=== PATIENT | female | born 1945 | race Caucasian/White ===

== ENCOUNTER → 2018-05-22 | Outpatient (CLI) | payer MEDICARE ==
--- NOTE | 2018-05-23 07:16 | US ---
EXAMINATION TYPE: US carotid duplex BILAT DATE OF EXAM: 05/22/2018 COMPARISON: NONE CLINICAL HISTORY: H53.9 UNSPECIFIED VISUAL DISTURBANCE. Rt side high bifurcation EXAM MEASUREMENTS: RIGHT: Peak Systolic Velocity (PSV) cm/sec ----- Right CCA: 93.0 ----- Right ICA: 104.3 ----- Right ECA: 76.5 ICA/CCA ratio: 1.1 RIGHT: End Diastole cm/sec ----- Right CCA: 33.6 ----- Right ICA: 38.7 ----- Right ECA: 14.7 LEFT: Peak Systolic Velocity (PSV) cm/sec ----- Left CCA: 93.0 ----- Left ICA: 89.0 ----- Left ECA: 58.9 ICA/CCA ratio: 1.0 LEFT: End Diastole cm/sec ----- Left CCA: 32.3 ----- Left ICA: 32.6 ----- Left ECA: 8.3 VERTEBRALS (direction of flow): Right Vertebral: Antegrade Left Vertebral: Antegrade Rhythm: Normal Mild atheromatous plaquing is seen within the carotid bulbs. IMPRESSION: Mild degree of grayscale atheromatous plaquing with no sonographically evident hemodynam ically significant stenosis within either visualized carotid arterial system. Criteria for Assigning % of Stenosis / Diameter reduction (Estimation based on the indirect measurements of the internal carotid artery velocities (ICA PSV). 1. Normal (no stenosis)=ICA PSV < 125 cm/s: ratio < 2.0: ICA EDV<40 cm/s. 2. Less than 50% stenosis=ICA PSV < 125 cm/s: ratio < 2.0: ICA EDV<40 cm/s. 3. 50 to 69% stenosis=ICA PSV of 125 to 230 cm/s: ration 2.0 ? 4.0: ICA EDV 40-100 cm/s. 4. Greater than 70% stenosis to near occlusion= ICA PSV > 230 cm/s: ratio > 4.0: ICA EDV > 100 cm/s. 5. Near occlusion= ICA PSV velocities may be low or undetectable: variable ratio and ICA EDV. 6. Total occlusion=unable to detect flow.
== END ==
LOC: RADUSWWP 15:42
PROVIDERS: ATTEND Internal Medicine
DX: I70.90 Unspecified atherosclerosis (principal)
CPT/HCPCS: 93880

== ENCOUNTER → 2019-09-07 | Outpatient (CLI) | payer MEDICARE ==
--- NOTE | 2019-09-10 08:04 | MM ---
Reason for exam: screening (asymptomatic). Last mammogram was performed 5 years and 5 months ago. History: Patient is postmenopausal. Took estrogen for 38 years 4 months beginning at age 30. Physical Findings: A clinical breast exam by your physician is recommended on an annual basis and results should be correlated with mammographic findings. MG 3D Screening Mammo W/Cad Bilateral CC and MLO view(s) were taken. Prior study comparison: April 11, 2014, bilateral MG screening mammo w CAD. March 03, 2012, [facility] DIGITAL RIGHT MAMMOGRAM w/CAD. The breast tissue is heterogeneously dense. This may lower the sensitivity of mammography. Benign appearing calcifications in the left breast. No suspicious abnormality. No significant changes when compared with prior studies. ASSESSMENT: Benign, BI-RAD 2 RECOMMENDATION: Routine screening mammogram of both breasts in 1 year.
== END | disposition home or self-care (01) ==
LOC: RADMAMWWP 11:57
PROVIDERS: ATTEND Internal Medicine
DX: Z12.31 Encounter for screening mammogram for malignant neoplasm of breast (principal)
CPT/HCPCS: 77063; 77067

== ENCOUNTER 2020-08-15 06:22 | Day surgery (SDC) | payer MEDICARE ==
[2020-08-14 09:39] VITALS: BMI 24.0
[~2020-08-15 06:22] MED LIST: LACTATED RINGERS 1,000 ML IV SCH
[2020-08-15 06:59] VITALS: RESP 16; TEMP 98
[2020-08-15 07:17] LABS: Glucose,Whole Blood 108 mg/dL (75-99)
[2020-08-15] MEDS ORDERED: LIDOCAINE 1% INJ 10MG/ML (20 ML MDV) ONE (07:36)
[2020-08-15] MEDS ORDERED: PROPOFOL 10 MG/ML 20 ML VIAL IV ONE (07:36)
--- NOTE | 2020-08-15 07:46 | P.PCN ---
Date of Procedure: 08/15/20 Procedure(s) Performed: BRIEF HISTORY: Patient is a 75-year-old, pleasant, white female scheduled for an upper endoscopy as a part of evaluation of atypical chest pain for the last 2 weeks' duration.. She went to the ER 2 weeks ago and had cardiac workup done that was negative. She denies any heartburn. Denies any dysphagia or odynophagia. No upper GI symptoms. PROCEDURE PERFORMED: Esophagogastroduodenoscopy with biopsy.. PREOPERATIVE DIAGNOSIS: Atypical chest pain of 2 weeks' duration. IV sedation per anesthesia. PROCEDURE: After informed consent was obtained, the patient was brought into the endoscopy unit. IV sedation was administered by Anesthesia under continuous monitoring. Initially the Olympus GIF-140 video endoscope was inserted into the mouth. Esophagus intubated without any difficulty. It was gradually advanced into the stomach and duodenum and carefully examined. The bulb and the second part of the duodenum appeared normal. The scope at this time was withdrawn to the stomach, adequately insufflated with air, and upon careful examination, mucosa of the antrum had multiple scattered erosions and biopsies were done from this area. The body, cardia and the fundus appeared normal. The scope was then withdrawn into the esophagus. The GE junction was located at 39 cm from the incisors. There was a small sliding type hiatal hernia noted. The esophagus appeared normal. There were no erosions or ulcerations seen, biopsies were done from the distal esophagus and the patient tolerated the procedure well. IMPRESSION: 1. Antral erosive gastritis. 2. Very small sliding type hiatal hernia but no evidence of esophagitis. RECOMMENDATIONS: The findings of this examination were discussed with the patient as well as her family. She was advised to follow with the biopsy results. In the meantime she was given her perception for Prilosec 40 mg daily to be taken half hour before breakfast for 4 weeks. She was advised to follow with office in a month.
[2020-08-15 07:49] VITALS: PULSE 58
[2020-08-15 08:05] VITALS: BP 128/56
== END 2020-08-15 08:29 | disposition home or self-care (01) ==
LOC: ORWHC2ENDO 06:22
PROVIDERS: ATTEND Internal Medicine Gastroenterology
DX: K29.00 Acute gastritis without bleeding (principal); R07.89 Other chest pain; K44.9 Diaphragmatic hernia without obstruction or gangrene; Z79.899 Other long term (current) drug therapy
CPT/HCPCS: 88305; 43239; J2001; J2704

== ENCOUNTER → 2022-10-21 | Outpatient (CLI) | payer MEDICARE ==
--- NOTE | 2022-10-25 10:26 | CA ---
Transthoracic Echo Report Name: Shelly Munoz Age: 77 Gender: F : 1945 Exam Date: 10/21/2022 14:58 Exam Location: [facility] Ht (in): 63 Wt (lb): 139 Ordering Physician: Kayden Long MD Attending/Referring Phys: Vy Barrera PAC District Engineer Jo Ann Hernández RDCS Procedure CPT: Indications: r55 Cardiac Hx: Technical Quality: Fair Contrast 1: Total Dose (mL): Contrast 2: Total Dose (mL): MEASUREMENTS (Male / Female) Normal Values 2D ECHO LV Diastolic Diameter PLAX 3.0 cm 4.2 - 5.9 / 3.9 - 5.3 cm LV Systolic Diameter PLAX 2.1 cm IVS Diastolic Thickness 1.3 cm 0.6 - 1.0 / 0.6 - 0.9 cm LVPW Diastolic Thickness 1.6 cm 0.6 - 1.0 / 0.6 - 0.9 cm LV Relative Wall Thickness 1.0 RV Internal Dim ED PLAX 3.0 cm LA Volume 46.5 cm??? 18 - 58 / 22 - 52 cm??? M-MODE Aortic Root Diameter MM 2.6 cm LA Systolic Diameter MM 3.3 cm LA Ao Ratio MM 1.3 AV Cusp Separation MM 1.7 cm DOPPLER AV Peak Velocity 151.4 cm/s AV Peak Gradient 9.2 mmHg AV Mean Velocity 102.2 cm/s AV Mean Gradient 4.7 mmHg AV Velocity Time Integral 35.4 cm LVOT Peak Velocity 123.4 cm/s LVOT Peak Gradient 6.1 mmHg LVOT Velocity Time Integral 27.5 cm MV Area PHT 3.9 cm??? Mitral E Point Velocity 85.1 cm/s Mitral A Point Velocity 118.6 cm/s Mitral E to A Ratio 0.7 MV Deceleration Time 195.7 ms MV E' Velocity 4.9 cm/s Mitral E to MV E' Ratio 17.3 TR Peak Velocity 250.5 cm/s TR Peak Gradient 25.1 mmHg Right Ventricular Systolic Press 30.0 mmHg FINDINGS Left Ventricle Mildly increased left ventricular wall thickness. Left ventricular cavity size normal. Normal left ventricular systolic function with no obvious regional wall motion abnormalities. Left ventricular ejection fraction is estimated at 55-60 %. Right Ventricle Normal right ventricular size and function. Right ventricular systolic pressure within normal limits. Right Atrium Normal right atrial size. Left Atrium Normal left atrial size. Mitral Valve Structurally normal mitral valve. No mitral stenosis, regurgitation or prolapse. Aortic Valve Trileaflet aortic valve. No aortic valve stenosis or regurgitation. Tricuspid Valve Structurally normal tricuspid valve. Mild tricuspid regurgitation. Pulmonic Valve Structurally normal pulmonic valve. Pericardium No pericardial effusion. Aorta Normal size aortic root and proximal ascending aorta. CONCLUSIONS Normal biventricular dimension and systolic function Mild concentric LVH The LV systolic function is 55-60% No significant valvular abnormalities Previewed by: Dr. Bear Lira MD (Electronically Signed) Final Date: 25 October 2022 10:25
== END | disposition home or self-care (01) ==
LOC: RADECHMAIN 14:54
PROVIDERS: ATTEND Family Medicine
DX: R55 Syncope and collapse (principal)
CPT/HCPCS: 93306

== ENCOUNTER → 2023-04-21 | Outpatient (CLI) | payer MEDICARE ==
--- NOTE | 2023-04-21 14:41 | BD ---
EXAMINATION TYPE: Axial Bone Density DATE OF EXAM: 04/21/2023 CLINICAL HISTORY: 77 years old Female. ICD-10 CODE: Z78.0 ASYMPTOMATIC MENOPAUSAL STATE Height: 63 Weight: 140 FRAX RISK QUESTIONS: History of Fracture in Adulthood: yes Secondary Osteoporosis: yes 3. Menopause before 45: yes RISK FACTORS HISTORY OF: hx of rib fxs 2 mos ago. Postmenopausal woman: total hyst. at age 30 Take estrogen and/or progesterone medications: yes from age 30, and still taking How lon yrs Hyperparathyroidism: no Adrenal Insufficiency: no MEDICATIONS: Additional Medications: estrodyle and progesterone, magnesium and vit d Additional History: early menopause, fx as an adult, hormones, hx of arthritis, fibromyalgia, RA fact or in blood test EXAM MEASUREMENTS: Bone mineral densitometry was performed using the [employer] System. Bone mineral density as measured about the Lumbar spine is: ----- L1-L4(G/cm2): 1.148 T Score Values are as follows: ----- L1: -1.4 ----- L2: -1.3 ----- L3: 0.4 ----- L4: 0.6 ----- L1-L4: -0.3 Z Score Values are as follows: ----- L1: 0.4 ----- L2: 0.6 ----- L3: 2.3 ----- L4: 2.5 ----- L1-L4: 1.6 Bone mineral density is her first dexa study at [facility]. Bone mineral density about the R hip (g/cm2): 0.857 Bone mineral density about the L hip (g/cm2): 0.901 T Score values are as follows: -----R Neck: -1.5 -----L Neck: -1.3 -----R Total: -1.2 -----L Total: -0.8 Z Score values are as follows: -----R Neck: 0.6 -----L Neck: 0.7 -----R Total: 0.7 -----L Total: 1.1 Bone mineral density is her first bone density at [facility]. FRAX%s: The graph provided illustrates a 18.6% chance for a major osteoporotic fx and a 3.8% chance f or the hips probability for fx in 10 years time. IMPRESSION: Osteopenia (T Score between -2.5 and -1). There is slightly increased risk of fracture and the patient may be considered for treatment. Re-Screen 2-5 years. NOTE: T-SCORE=SD OF THE YOUNG ADULT MEAN.
== END | disposition home or self-care (01) ==
LOC: RADBDWWP 10:58
PROVIDERS: ATTEND Family Medicine
DX: M85.89 Other specified disorders of bone density and structure, multiple sites (principal); Z78.0 Asymptomatic menopausal state
CPT/HCPCS: 77080